=== PATIENT | male | born 1980 | race Two or more races ===

== ENCOUNTER 2016-11-01 15:24 | Emergency (ER) | payer BC, OTHER ==
[~2016-11-01] VITALS: Ht 182.9 cm; Wt 165.6 kg
[2016-11-01 15:56] VITALS: BP 123/78
[2016-11-01 17:31] LABS: Urine RBC None Seen /hpf (0 - 3)
[2016-11-01 17:54] LABS: Urine Bilirubin Negative (Negative); Urine Blood Negative /uL (Negative); Urine Color Yellow (Yellow); Urine Glucose Normal (Normal); Urine Nitrite Negative (Negative); Urine Squamous Epithelial Cell FEW /hpf (<5); Urine Urobilinogen Normal (Negative)
[2016-11-01 17:56] LABS: Urine Ketone 1+ (Negative)
== END 2016-11-01 18:26 | disposition left against medical advice (07) ==
LOC: ER 15:29
DX: R73.02 Impaired glucose tolerance (oral) (principal); F10.10 Alcohol abuse, uncomplicated; F15.10 Other stimulant abuse, uncomplicated; F14.10 Cocaine abuse, uncomplicated; Z53.21 Procedure and treatment not carried out due to patient leaving prior to being seen by health care provider
CPT/HCPCS: 81001; G0434

== ENCOUNTER 2017-09-11 00:30 | Emergency (ER) | payer OTHER ==
[~2017-09-11] VITALS: Ht 182.9 cm; Wt 127.0 kg
[2017-09-11] MEDS ORDERED: IBUPROFEN 800 MG TAB PO ONE (00:52)
[2017-09-11 02:40] VITALS: BP 146/82
== END 2017-09-11 03:12 | disposition home or self-care (01) ==
LOC: ER 00:30
DX: F16.10 Hallucinogen abuse, uncomplicated (principal)
CPT/HCPCS: 80307

== ENCOUNTER 2021-12-29 16:37 | Emergency (ER) | payer OTHER ==
[~2021-12-29] VITALS: Ht 182.9 cm; Wt 124.7 kg
[2021-12-29] MEDS ORDERED: SODIUM CHLORIDE 0.9% 1,000 ML IV ONE (19:00)
[2021-12-29 19:25] VITALS: BP 122/65
== END 2021-12-29 20:50 | disposition home or self-care (01) ==
LOC: EDBD 16:37 → ER 16:37
DX: F10.129 Alcohol abuse with intoxication, unspecified (principal); Y90.8 Blood alcohol level of 240 mg/100 ml or more
CPT/HCPCS: 93005; 96360; 99283; J7030